=== PATIENT | female | born 1975 | race Caucasian/White ===

== ENCOUNTER 2019-12-29 08:58 | Inpatient (IN) | payer BC ==
[~2019-12-29] VITALS: Ht 162.6 cm; Wt 98.4 kg
[2019-12-29 09:49] LABS: BASO # 0.1 10^3/uL (0.0-0.2); BASO % 0.9 % (0.0-1.0); EOS # 0.2 10^3/uL (0.0-0.5); EOS % 2.9 % (0.0-3.0); HEMOGLOBIN 12.8 g/dl (12.0-15.5); LYMPH # 1.1 10^3/uL (1.5-5.0); LYMPH % 16.3 % (24.0-44.0); MEAN CORPUSCULAR HEMOGLOBIN 29.7 pg (27.0-33.0); MEAN CORPUSCULAR VOLUME 92.8 fl (80.0-96.0); MONO # 0.6 10^3/uL (0.0-0.8); MONO % 8.9 % (0.0-5.0); NEUTROPHILS # 4.6 10^3/uL (1.5-8.5); NEUTROPHILS % 70.4 % (36.0-66.0); PLATELET COUNT, AUTOMATED 280 10^3/uL (150-450); RED BLOOD COUNT 4.31 10^6/uL (4.00-5.40); WHITE BLOOD COUNT 6.5 10^3/uL (4.0-10.0)
[2019-12-29] MEDS ORDERED: ATOR80TA59 PO (09:52)
[2019-12-29] MEDS ORDERED: BASA100I SC (09:52)
[2019-12-29] MEDS ORDERED: HYDR-4517 PO (09:52)
[2019-12-29] MEDS ORDERED: SYNT88TA2 PO (09:52)
[2019-12-29] MEDS ORDERED: METO1TAB87 PO (09:52)
[2019-12-29] MEDS ORDERED: NITR0.4S14 SL (09:52)
[2019-12-29] MEDS ORDERED: ZETI10TA16 PO (09:52)
[2019-12-29] MEDS ORDERED: RANO500T7 PO (09:52)
[2019-12-29] MEDS ORDERED: GABA-843 PO (09:52)
[2019-12-29] MEDS ORDERED: PLAV1TAB2 PO (09:52)
[2019-12-29] MEDS ORDERED: CYMB1CAP5 PO (09:52)
[2019-12-29] MEDS ORDERED: PANT40TA3 PO (09:52)
[2019-12-29] MEDS ORDERED: NOVOINJ SC (09:52)
[2019-12-29] MEDS ORDERED: TIZA4CAP PO (09:52)
[2019-12-29] MEDS ORDERED: LISI10TA4 PO (09:52)
[2019-12-29] MEDS ORDERED: ASPI81TA85 PO (09:52)
[2019-12-29 10:01] LABS: PROTHROMBIN TIME 12.9 SECONDS (11.8-14.0)
[2019-12-29 10:02] LABS: PARTIAL THROMBOPLASTIN TIME 31.8 SECONDS (25.0-38.4)
[2019-12-29] MEDS ORDERED: NS 1,000 ML IV ONE (10:15)
[2019-12-29] MEDS ORDERED: ACETAMINOPHEN 500 MG TAB PO ONE (10:15)
[2019-12-29] MEDS ORDERED: ONDANSETRON 4MG/2ML VIAL IV ONE (10:15)
[2019-12-29 10:23] LABS: ALBUMIN 4.1 GM/DL (3.2-5.2); BILIRUBIN,DIRECT 0.2 MG/DL (0.0-0.2); BILIRUBIN,TOTAL 0.5 MG/DL (0.2-1.0); TOTAL PROTEIN 8.2 GM/DL (6.4-8.2)
--- NOTE | 2019-12-29 10:46 | REP ---
Clinical: Bilateral flank pain. Technique: Axial noncontrast images from the lung bases to the pubic symphysis with coronal and sagittal re-formations. Comparison: None. Findings: Lung bases demonstrate moderate streaky atelectasis and small early patchy alveolar infiltrates suggesting the possibility of early multifocal pneumonia. No effusion. Kidneys demonstrate bilateral hydronephrosis and proximal hydroureter along with perinephric and periureteral stranding. No evidence for nephroureterolithiasis is appreciated. The bladder is unremarkable. Liver, spleen, pancreas, and bilateral adrenal glands appear normal. Evidence of prior cholecystectomy. The enteric system suggests moderate fecal stasis without obstruction or acute inflammatory process. Pelvis demonstrates normal bladder and evidence for prior hysterectomy. No ascites. No free air. No adenopathy. Abdominal aorta without aneurysm. Musculoskeletal structures demonstrate degenerative and postsurgical changes. Impression: 1. Perinephric and periureteral stranding with hydronephrosis and no evidence for nephrolithiasis suggests pyelonephritis and correlation is recommended. 2. Bibasilar atelectasis and early patchy infiltrates raise the possibility of early pneumonia. Electronically Signed by Jaleel Leyva MD 12/29/2019 10:37 A
[2019-12-29] MEDS ORDERED: NORCO, ANEXSIA 5/325MG TABLET (HYDROcodone/ACETAMINOPHEN) PO ONE (11:15)
[2019-12-29] MEDS ORDERED: cefTRIAXone SOD 1 GM in D5W MINI-BAG PLUS 50 ML IV ONE (11:15)
[2019-12-29] MEDS ORDERED: GABA-845 PO (12:09)
[2019-12-29] MEDS ORDERED: ZOLP5TAB PO (12:09)
[2019-12-29] MEDS ORDERED: TRES1INJ2 SC (12:09)
[2019-12-29] MEDS ORDERED: LISI-538 PO (12:09)
[2019-12-29] MEDS ORDERED: GLUCAGON INJ 1MG VIAL SC PRN (12:45)
[2019-12-29] MEDS ORDERED: GLUCOSE 4GM CHEW TABLET PO PRN (12:45)
[2019-12-29] MEDS ORDERED: MORPHINE 2 MG/ML 1ML VIAL (J2270) IV PRN (12:45)
[2019-12-29] MEDS ORDERED: DEXTROSE 50% 50 ML SYRINGE IV PRN (12:45)
[2019-12-29] MEDS ORDERED: NITROGLYCERIN 0.4 MG SUBL TABLET SL PRN (12:45)
[2019-12-29] MEDS: NS 1,000 ML IV SCH (13:00)
[2019-12-29] MEDS ORDERED: NORCO, ANEXSIA 5/325MG TABLET (HYDROcodone/ACETAMINOPHEN) PO PRN ×2 (13:00)
[2019-12-29] MEDS: ASPIRIN 81 MG ENTERIC TAB PO SCH (13:12)
[2019-12-29] MEDS: CLOPIDOGREL 75 MG TAB PO SCH (13:12)
[2019-12-29] MEDS: DULoxetine 30 MG CAP (CYMBALTA) PO SCH (13:12)
[2019-12-29] MEDS: PANTOPRAZOLE 40MG TAB (PROTONIX) PO SCH (13:13)
--- NOTE | 2019-12-29 13:30 | HPEPDOC ---
General Date of Admission Dec 29, 2019 at 12:33 Date of Service: Dec 29, 2019 Chief Complaint The patient is a 44-year-old female Who presented to the emergency room with concerns of abdominal pain History of Present Illness Patient is a 44-year-old female form [place], PMHx of CAD s/p CABG (2015), HTN, DLP, IDDM2, Hypothyroidism, Neuropathy and Fibromyalgia, who presented to the ER with abdominal pain. Patient reports that her abdominal pain started on occurring at the lower portion of her abdomen.. She noted that it spread to her back toward her kidneys. Patient notes that the pain as a 10/10, continuous alleviated with hydrocodone that she takes at home; last dose was yesterday at 10 PM. Aggravated with movement. Patient reports discomfort with urination that started Monday night. Patient denies any fevers or chills. Does experiencing nausea without vomiting. Denies any chest pain, shortness of breath, cough or palpitations. Has not expense any constipation or diarrhea. Patient reports her appetite is poor and is unaware of any changes in her weig ht. Home Medications Scheduled Aspirin (Aspir 81) 81 Mg Tablet.dr, 81 MG PO DAILY, (Reported) Clopidogrel Bisulfate (Plavix) 75 Mg Tablet, 75 MG PO DAILY, (Reported) Duloxetine Hcl (Cymbalta) 30 Mg Capsule.dr, 30 MG PO DAILY, (Reported) Ezetimibe (Zetia) 10 Mg Tablet, 10 MG PO DAILY, (Reported) Gabapentin (Gabapentin) 400 Mg Capsule, 400 MG PO BID, (Reported) Insulin Aspart (Novolog) 100 Unit/1 Ml Cartridge, 1 DOSE SC ACHS, (Reported) PER SLIDING SCALE Insulin Degludec (Tresiba Flextouch U-100) 100 Unit/1 Ml Insuln.pen, 50 UNITS SC BID, (Reported) Levothyroxine Sodium (Synthroid) 88 Mcg Tablet, 88 MCG PO DAILY, (Reported) Lisinopril (Lisinopril) 20 Mg Tablet, 20 MG PO DAILY, (Reported) Metoprolol Tartrate (Metoprolol Tartrate) 25 Mg Tablet, 12.5 MG PO BID, (Reported) Pantoprazole Sodium (Pantoprazole Sodium) 40 Mg Tablet.dr, 40 MG PO DAILY, (Reported) Ranolazine (Ranexa) 500 Mg Tab.er.12h, 500 MG PO BID, (Reported) Tizanidine HCl (Tizanidine HCl) 4 Mg Capsule, 4 MG PO QHS, (Reported) Zolpidem Tartrate (Zolpidem Tartrate) 5 Mg Tablet, 5 MG PO QHS, (Reported) Scheduled PRN Nitroglycerin (Nitroglycerin) 0.4 Mg Tab.subl, 0.4 MG SL NITRO PRN for CHEST PAIN, (Reported) Allergies Coded Allergies: morphine (Verified Allergy, Severe, HAULLUCINATIONS, 12/29/19) Iodinated Contrast Media (Verified Allergy, Intermediate, RASH, 12/29/19) oxycodone (Verified Adverse Reaction, Intermediate, N/V, 12/29/19) Past Medical History Medical History CAD s/p CABG (2015), HTN, DLP, IDDM2, Hypothyroidism, Neuropathy, Arthritis, Headaches and Fibromyalgia Surgical History Back surgery 2009 Cholecystectomy Hysterectomy Sternum repair from complications of open heart surgery Family History - Reviewed and is noncontributory to this hospitalization Social History - Denies the use of alcohol or illicit drugs; patient reports that she quit smoking in 2015 - Denies any sick contacts; patient is from [place] - Lives with Review of Systems Other systems 10 point review of systems complete, all negative otherwise stated in HPI Vital Signs - Vitals: BP 134/80, HR 85, RR 20, Sat 96%RA, Temp 97.8F - General: Lying in bed, Speaking in full sentences, AAOx3 - HEENT: NC, AT, PERRLA - CVS: RRR, +S1S2 - Lungs: Fair air entry bilaterally, No appreciable wheezing / rales / rhonchi - Abdomen: Soft, Non-distended, + Suprapubic tenderness, + CVA tenderness - Extremities: No lower extremity edema, No calf tenderness - Neuro: No focal motor or sensory deficit - Skin: No visible rashes Laboratory Data Labs 24H Laboratory Tests 2 12/29/19 09:34: POC Glucose (Misc Panel) 94, POC Sodium (Misc Panel) 136, POC Potassium (Misc Panel) 5.0, POC Chloride (Misc Panel) 102, POC Total CO2 (Misc Panel) 26.0, POC Blood Urea Nitrogen (Misc Panel 24, POC Ionized Calcium (Misc Panel) 4.4L, POC Creatinine (Misc Panel) 2.0H, POC Hematocrit (Misc Panel) 40.0 12/29/19 09:35: Immature Granulocyte % (Auto) 0.6, Neutrophils (%) (Auto) 70.4H, Lymphocytes (%) (Auto) 16.3L, Monocytes (%) (Auto) 8.9H, Eosinophils (%) (Auto) 2.9, Basophils (%) (Auto) 0.9, Neutrophils # (Auto) 4.6, Lymphocytes # (Auto) 1.1L, Monocytes # (Auto) 0.6, Eosinophils # (Auto) 0.2, Basophils # (Auto) 0.1, Nucleated Red Blood Cells % (auto) 0.0, Prothrombin Time 12.9, Prothromb Time International Ratio 1.00, Activated Partial Thromboplast Time 31.8, Lactic Acid Level 0.8, Total Bilirubin 0.5, Direct Bilirubin 0.2, Aspartate Amino Transf (AST/SGOT) 86H, Alanine Aminotransferase (ALT/SGPT) 44, Alkaline Phosphatase 92, Total Pr otein 8.2, Albumin 4.1, Albumin/Globulin Ratio 1.0L, Amylase Level 25, Lipase 101 12/29/19 10:44: Urine Color YELLOW, Urine Appearance CLOUDYH, Urine pH 5.0, Urine Specific [place] 1.013, Urine Protein 2+H, Urine Glucose (UA) NEGATIVE, Urine Ketones NEGATIVE, Urine Blood 1+H, Urine Nitrite NEGATIVE, Urine Bilirubin NEGATIVE, Urine Urobilinogen 0.2, Urine Leukocyte Esterase 2+H, Urine WBC (Auto) TNTCH, Urine RBC (Auto) 124H, Urine Hyaline Casts (Auto) 0, Urine Bacteria (Auto) 1+H, Urine Squamous Epithelial Cells 1, Urine Sperm (Auto) CBC/BMP Laboratory Tests 12/29/19 09:35 Microbiology Microbiology 12/29/19 Urine Culture, Received Pending Plan / VTE VTE Prophylaxis Ordered?: Yes Plan Plan Bilateral pyelonephritis - Presented to the emergency room with complains of abdominal pain associated with nausea and dysuria - Physical with abdominal tenderness at suprapubic region and CVA tenderness - Hemodynamically stable and afebrile - No significant leukocytosis or lactic acidosis - UA with consistency with infection; urine culture pending, but culture pending - Will start ceftriaxone IV fluid hydration Elevated Cr - Suspect CKD; no baseline to compare against - Will hold nephrotoxic medications - Will c/w IV fluid hydration for above CAD s/p CABG (2015) - c/w ASA, Plavix, Metoprolol Ranolazine - c/w Nitroglycerin PRN HTN - BP well controlled - Will hold Lisinopril - c/w Metoprolol with holding parameters DLP - c/w Ezetimibe IDDM2 - Will start ISS - Will c/w long acting insulin at adjusted dose Hypothyroidism - c/w Levothyroxine Neuropathy / Arthritis / Headaches and Fibromyalgia - c/w Tizanidine, Duloxetine - c/w [place] based on outpatient regimen Insomnia - c/w Zolpidem GERD - c/w Protonix DVT prophylaxis - Will start Heparin ALLEY BENAVIDEZ MD Dec 29, 2019 13:30
[2019-12-29 15:22] VITALS: BP 148/85
[2019-12-29] MEDS: HumaLOG INSULIN (NovoLOG) PER UNIT SC SCH ×2 (16:38→21:00)
[2019-12-29] MEDS: HEPARIN SOD (PORCINE) 5000UNITS/ML VIAL (J1644 PER 1000UNITS) SC SCH ×2 (16:46→21:37)
[2019-12-29] MEDS: EZETIMIBE 10 MG TAB (ZETIA) PO SCH (16:46)
[2019-12-29] MEDS: GABAPENTIN 400 MG CAP PO SCH (21:36)
[2019-12-29] MEDS: zolPIDEM TARTRATE 5 MG TAB PO SCH (21:36)
[2019-12-29] MEDS: METOPROLOL TART 12.5 MG PER 1/2 TAB PO SCH (21:36)
[2019-12-29] MEDS: RANOLAZINE 500 MG ER TAB PO SCH (21:36)
[2019-12-29] MEDS: tiZANidine 4 MG TAB PO SCH (21:37)
[2019-12-29] MEDS: LEVEMIR (INSULIN DETEMIR) 1 UNITS/0.01ML SC SCH (21:37)
[2019-12-29 22:00] VITALS: BP 144/85
[2019-12-30] MEDS: NS 1,000 ML IV SCH (01:38)
[2019-12-30] MEDS: HEPARIN SOD (PORCINE) 5000UNITS/ML VIAL (J1644 PER 1000UNITS) SC SCH ×3 (05:44→21:25)
[2019-12-30] MEDS: LEVOTHYROXINE 88MCG TABLET (0.088 MG) PO SCH (05:44)
[2019-12-30 06:00] VITALS: BP 104/64
[2019-12-30 06:39] LABS: BASO # 0.1 10^3/uL (0.0-0.2); BASO % 1.9 % (0.0-1.0); EOS # 0.2 10^3/uL (0.0-0.5); EOS % 4.6 % (0.0-3.0); HEMATOCRIT 33.5 % (36.0-47.0); LYMPH # 1.5 10^3/uL (1.5-5.0); LYMPH % 35.7 % (24.0-44.0); MEAN CORPUSCULAR HEMOGLOBIN 29.9 pg (27.0-33.0); MEAN CORPUSCULAR HGB CONC 31.6 g/dl (32.0-36.5); MEAN CORPUSCULAR VOLUME 94.4 fl (80.0-96.0); MONO # 0.3 10^3/uL (0.0-0.8); NEUTROPHILS # 2.1 10^3/uL (1.5-8.5); NEUTROPHILS % 49.4 % (36.0-66.0); PLATELET COUNT, AUTOMATED 261 10^3/uL (150-450); RED BLOOD COUNT 3.55 10^6/uL (4.00-5.40); WHITE BLOOD COUNT 4.3 10^3/uL (4.0-10.0)
[2019-12-30 06:40] LABS: HEMOGLOBIN 10.6 g/dl (12.0-15.5)
[2019-12-30 06:58] LABS: CALCIUM LEVEL 8.1 MG/DL (8.5-10.1); CREATININE FOR GFR 1.58 MG/DL (0.55-1.30); GLOMERULAR FILTRATION RATE 37.6 (>58); MAGNESIUM LEVEL 2.3 MG/DL (1.8-2.4)
[2019-12-30] MEDS: HumaLOG INSULIN (NovoLOG) PER UNIT SC SCH ×4 (07:30→20:03)
[2019-12-30] MEDS: GABAPENTIN 400 MG CAP PO SCH ×2 (08:27→21:23)
[2019-12-30] MEDS: RANOLAZINE 500 MG ER TAB PO SCH ×2 (08:28→21:23)
[2019-12-30] MEDS: ASPIRIN 81 MG ENTERIC TAB PO SCH (08:28)
[2019-12-30] MEDS: EZETIMIBE 10 MG TAB (ZETIA) PO SCH (08:28)
[2019-12-30] MEDS: DULoxetine 30 MG CAP (CYMBALTA) PO SCH (08:28)
[2019-12-30] MEDS: PANTOPRAZOLE 40MG TAB (PROTONIX) PO SCH (08:28)
[2019-12-30] MEDS: METOPROLOL TART 12.5 MG PER 1/2 TAB PO SCH ×2 (08:28→21:24)
[2019-12-30] MEDS: CLOPIDOGREL 75 MG TAB PO SCH (08:28)
[2019-12-30] MEDS ORDERED: LEVEMIR (INSULIN DETEMIR) 1 UNITS/0.01ML SC ONE (10:00)
[2019-12-30] MEDS: LEVEMIR (INSULIN DETEMIR) 1 UNITS/0.01ML SC SCH ×2 (10:04→21:00)
[2019-12-30] MEDS: cefTRIAXone SOD 1 GM in D5W MINI-BAG PLUS 50 ML IV SCH (11:22)
--- NOTE | 2019-12-30 12:02 | IPNPDOC ---
Text Note Date of Service The patient was seen on 12/30/19. NOTE Subjective: Patient is a 44-year-old female form [place], PMHx of CAD s/p CABG (2015), HTN, DLP, IDDM2, Hypothyroidism, Neuropathy and Fibromyalgia, who presented to the ER with abdominal pain. Patient reports that her abdominal pain started on occurring at the lower portion of her abdomen.. She noted that it spread to her back toward her kidneys. Patient notes that the pain as a 10/10, continuous alleviated with hydrocodone that she takes at home; last dose was yesterday at 10 PM. Patient. Imaging completed in emergency room that was consistent with bilateral pyelonephritis and was admitted to hospitalist service for further evaluation, treatment. Patient was seen and examined at the bedside. Patient denies any nausea, vomiting, diarrhea or constipation. Patient reports her urinary discomfort has been improving and her abdominal pain has resolved. She denies any chest pain, shortness of breath, palpitations. Objective: Vitals (See below) General: Lying in bed, comfortable, AAOx3 HEENT: NC, AT CVS: +S1S2 Lungs: Fair air entry b/l, -w/r/r Abdomen: Soft, ND, NT Extremities: - Edema, - Calf tenderness Assessment and plan: Bilateral pyelonephritis - Presented to ER with complains of abdominal pain associated with nausea and dysuria - Physical with abdominal tenderness at suprapubic region and CVA tenderness - Hemodynamically stable and afebrile - No leukocytosis / Lactic acidosis - UA with consistency with infection; urine culture remain pending - c/w ceftriaxone IV (Day#2) Elevated Cr - Suspect CKD; no baseline to compare against - Will hold nephrotoxic medications - Will stop IV fluid hydration - Encourage oral fluid intake CAD s/p CABG (2016) - c/w ASA, Plavix, Metoprolol Ranolazine - c/w Nitroglycerin PRN HTN - BP well controlled currently - Will hold Lisinopril (re: elevated Cr) - c/w Metoprolol with holding parameters DLP - c/w Ezetimibe IDDM2 - c/w ISS - c/w long acting insulin at adjusted dose Hypothyroidism - c/w Levothyroxine Neuropathy / Arthritis / Headaches and Fibromyalgia - c/w Tizanidine, Duloxetine - c/w [place] based on outpatient regimen Insomnia - c/w Zolpidem GERD - c/w Protonix DVT prophylaxis - c/w Heparin VS,Fishbone, I+O VS, Fishbone, I+O Laboratory Tests 12/30/19 05:38 Vital Signs Date Time Temp Pulse Resp B/P (MAP) Pulse Ox O2 Delivery O2 Flow Rate FiO2 12/30/19 08:28 74 119/61 12/30/19 06:00 97.8 16 97 Room Air I&O- Last 24 Hours up to 6 AM 12/30/19 06:00 Intake Total 1830 ml Output Total 450 ml Balance 1380 ml ALLEY BENAVIDEZ MD Dec 30, 2019 12:02
[2019-12-30 14:00] VITALS: BP 118/62
[2019-12-30] MEDS ORDERED: ONDANSETRON 4MG/2ML VIAL IV PRN (20:15)
[2019-12-30] MEDS: tiZANidine 4 MG TAB PO SCH (21:23)
[2019-12-30] MEDS: zolPIDEM TARTRATE 5 MG TAB PO SCH (21:23)
[2019-12-30 22:00] VITALS: BP 139/91
[2019-12-31] MEDS: LEVOTHYROXINE 88MCG TABLET (0.088 MG) PO SCH (05:45)
[2019-12-31] MEDS: HEPARIN SOD (PORCINE) 5000UNITS/ML VIAL (J1644 PER 1000UNITS) SC SCH (05:46)
[2019-12-31 06:00] VITALS: BP 124/77
[2019-12-31 06:31] LABS: BASO # 0.1 10^3/uL (0.0-0.2); BASO % 1.9 % (0.0-1.0); EOS # 0.2 10^3/uL (0.0-0.5); HEMATOCRIT 32.9 % (36.0-47.0); HEMOGLOBIN 10.7 g/dl (12.0-15.5); LYMPH # 1.6 10^3/uL (1.5-5.0); LYMPH % 32.8 % (24.0-44.0); MEAN CORPUSCULAR HEMOGLOBIN 30.3 pg (27.0-33.0); MEAN CORPUSCULAR HGB CONC 32.5 g/dl (32.0-36.5); MEAN CORPUSCULAR VOLUME 93.2 fl (80.0-96.0); MONO # 0.3 10^3/uL (0.0-0.8); NEUTROPHILS # 2.6 10^3/uL (1.5-8.5); NEUTROPHILS % 53.1 % (36.0-66.0); PLATELET COUNT, AUTOMATED 278 10^3/uL (150-450); RED BLOOD COUNT 3.53 10^6/uL (4.00-5.40); WHITE BLOOD COUNT 4.8 10^3/uL (4.0-10.0)
[2019-12-31 06:58] LABS: CREATININE FOR GFR 1.76 MG/DL (0.55-1.30); GLOMERULAR FILTRATION RATE 33.2 (>58); MAGNESIUM LEVEL 2.2 MG/DL (1.8-2.4); POTASSIUM SERUM 4.1 MEQ/L (3.5-5.1)
[2019-12-31] MEDS: HumaLOG INSULIN (NovoLOG) PER UNIT SC SCH (07:30)
[2019-12-31] MEDS: CLOPIDOGREL 75 MG TAB PO SCH (07:49)
[2019-12-31] MEDS: RANOLAZINE 500 MG ER TAB PO SCH (07:49)
[2019-12-31] MEDS: ASPIRIN 81 MG ENTERIC TAB PO SCH (07:49)
[2019-12-31] MEDS: PANTOPRAZOLE 40MG TAB (PROTONIX) PO SCH (07:49)
[2019-12-31] MEDS: DULoxetine 30 MG CAP (CYMBALTA) PO SCH (07:49)
[2019-12-31] MEDS: GABAPENTIN 400 MG CAP PO SCH (07:49)
[2019-12-31 07:50] VITALS: BP 131/87
[2019-12-31] MEDS: METOPROLOL TART 12.5 MG PER 1/2 TAB PO SCH (07:50)
[2019-12-31] MEDS: EZETIMIBE 10 MG TAB (ZETIA) PO SCH (07:50)
[2019-12-31] MEDS: LEVEMIR (INSULIN DETEMIR) 1 UNITS/0.01ML SC SCH (07:52)
[2019-12-31] MEDS: cefTRIAXone SOD 1 GM in D5W MINI-BAG PLUS 50 ML IV SCH (08:42)
[2019-12-31] MEDS ORDERED: CEFD300CAP PO (10:02)
--- NOTE | 2019-12-31 13:10 | DS.PDOC ---
Discharge Summary General Date of Admission Dec 29, 2019 at 12:33 Date of Discharge 12/31/2019 Discharge Summary PROCEDURES PERFORMED DURING STAY: [None]. ADMITTING DIAGNOSES / DISCHARGE DIAGNOSES: Bilateral pyelonephritis Elevated Cr - likely 2/2 CKD3 CAD s/p CABG (2015) HTN DLP IDDM2 Hypothyroidism Neuropathy / Arthritis / Headaches and Fibromyalgia Insomnia GERD DVT prophylaxis COMPLICATIONS/CHIEF COMPLAINT: Weakness / Abdominal pain / Dysuria HISTORY OF PRESENT ILLNESS: Patient is a 44-year-old female form [place], PMHx of CAD s/p CABG (2015), HTN, DLP, IDDM2, Hypothyroidism, Neuropathy and Fibromyalgia, who presented to the ER with abdominal pain. Patient reports that her abdominal pain started on occurring at the lower portion of her abdomen.. She noted that it spread to her back toward her kidneys. Patient notes that the pain as a 10/10, continuous alleviated with hydrocodone that she takes at home; last dose was yesterday at 10 PM. Patient. Imaging completed in emergency room that was consistent with bilateral pyelonephritis and was admitted to hospitalist service for further evaluation, treatment. HOSPITAL COURSE: Bilateral pyelonephritis - Presented to ER with complains of abdominal pain associated with nausea and dysuria; currenltly reports resolution of abdominal pain and dysuria - Physical without tenderness at abdomen / CVA - Hemodynamically stable and afebrile - No leukocytosis / Lactic acidosis - UA with consistency with infection; urine culture remain pending - c/w ceftriaxone IV (Day#3); will continue with Cefdinir on discharge for completion of antibiotic course Elevated Cr - likely 2/2 CKD3 - Suspect CKD; no baseline to compare against - Patient reports that she has had a history of poor renal function and was advised of her kidneys shutting down the past - Will hold nephrotoxic medications - s/p IV fluid hydration - Patient again has been encouraged to increase oral fluid intake CAD s/p CABG (2015) - c/w ASA, Plavix, Metoprolol Ranolazine - c/w Nitroglycerin PRN HTN - BP well controlled currently - Will resume Lisinopril on discharge - c/w Metoprolol with holding parameters DLP - c/w Ezetimibe IDDM2 - c/w ISS - c/w long acting insulin at adjusted dose Hypothyroidism - c/w Levothyroxine Neuropathy / Arthritis / Headaches and Fibromyalgia - c/w Tizanidine, Duloxetine - c/w [place] based on outpatient regimen Insomnia - c/w Zolpidem GERD - c/w Protonix DVT prophylaxis - c/w Heparin DISCHARGE MEDICATIONS: Please see below. ALLERGIES: Please see below. PHYSICAL EXAMINATION ON DISCHARGE: Vitals (See below) General: Lying in bed, appears comfortable, AAOx3 HEENT: NC, AT CVS: +S1S2 Lungs: Fair air entry b/l, no appreciable wheezing, rhonchi or rales Abdomen: Soft, ND, NT Extremities: No evidence of edema, - Calf tenderness LABORATORY DATA: Please see below. ACTIVITY: [As tolerated]. DISCHARGE PLAN: Follow up with PCP within 7 days Remain compliant with treatment plan and medications Return to the ER if you experience any problems DISPOSITION: Home, Self-Care. DISCHARGE CONDITION: [Stable]. TIME SPENT ON DISCHARGE: 35 minutes. Vital Signs/I&Os Vital Signs Date Time Temp Pulse Resp B/P (MAP) Pulse Ox O2 Delivery O2 Flow Rate FiO2 12/31/19 07:50 78 131/87 12/31/19 06:00 97.3 18 96 Room Air I&O- Last 24 Hours up to 6 AM 12/31/19 06:00 Intake Total 2700 ml Output Total 1200 ml Balance 1500 ml Laboratory Data Labs 24H Laboratory Tests 2 12/30/19 16:22: Bedside Glucose (Misc Panel) 128H 12/30/19 19:41: Bedside Glucose (Misc Panel) 75 12/30/19 21:22: Bedside Glucose (Misc Panel) 63L 12/31/19 00:10: Bedside Glucose (Misc Panel) 131H 12/31/19 05:48: Bedside Glucose (Misc Panel) 102 12/31/19 06:18: Immature Granulocyte % (Auto) 1.2, Neutrophils (%) (Auto) 53.1, Lymphocytes (%) (Auto) 32.8, Monocytes (%) (Auto) 6.0H, Eosinophils (%) (Auto) 5.0H, Basophils (%) (Auto) 1.9H, Neutrophils # (Auto) 2.6, Lymphocytes # (Auto) 1.6, Monocytes # (Auto) 0.3, Eosinophils # (Auto) 0.2, Basophils # (Auto) 0.1, Nucleated Red Blood Cells % (auto) 0.0, Anion Gap 5L, Glomerular Filtration Rate 33.2L, Calcium Level 9.0, Magnesium Level 2.2 12/31/19 06:21: Bedside Glucose (Misc Panel) 89 CBC/BMP Laboratory Tests 12/31/19 06:18 FSBS Laboratory Tests Test 12/30/19 16:22 12/30/19 19:41 12/30/19 21:22 12/31/19 00:10 Range/Units Bedside Glucose (Misc Panel) 128 75 63 131 70-105 MG/DL Test 12/31/19 05:48 12/31/19 06:21 Range/Units Bedside Glucose (Misc Panel) 102 89 70-105 MG/DL Microbiology Microbiology 12/29/19 Urine Culture - Final, Complete Escherichia Coli Discharge Medications Scheduled Aspirin (Aspir 81) 81 Mg Tablet.dr, 81 MG PO DAILY, (Reported) Cefdinir (Cefdinir) 300 Mg Capsule, 1 CAP PO BID Clopidogrel Bisulfate (Plavix) 75 Mg Tablet, 75 MG PO DAILY, (Reported) Duloxetine Hcl (Cymbalta) 30 Mg Capsule.dr, 30 MG PO DAILY, (Reported) Ezetimibe (Zetia) 10 Mg Tablet, 10 MG PO DAILY, (Reported) Gabapentin (Gabapentin) 400 Mg Capsule, 400 MG PO BID, (Reported) Insulin Aspart (Novolog) 100 Unit/1 Ml Cartridge, 1 DOSE SC ACHS, (Reported) PER SLIDING SCALE Insulin Degludec (Tresiba Flextouch U-100) 100 Unit/1 Ml Insuln.pen, 50 UNITS SC BID, (Reported) Levothyroxine Sodium (Synthroid) 88 Mcg Tablet, 88 MCG PO DAILY, (Reported) Lisinopril (Lisinopril) 20 Mg Tablet, 20 MG PO DAILY, (Reported) Metoprolol Tartrate (Metoprolol Tartrate) 25 Mg Tablet, 12.5 MG PO BID, (Reported) Pantoprazole Sodium (Pantoprazole Sodium) 40 Mg Tablet.dr, 40 MG PO DAILY, (Reported) Ranolazine (Ranexa) 500 Mg Tab.er.12h, 500 MG PO BID, (Reported) Tizanidine HCl (Tizanidine HCl) 4 Mg Capsule, 4 MG PO QHS, (Reported) Zolpidem Tartrate (Zolpidem Tartrate) 5 Mg Tablet, 5 MG PO QHS, (Reported) Scheduled PRN Nitroglycerin (Nitroglycerin) 0.4 Mg Tab.subl, 0.4 MG SL NITRO PRN for CHEST PAIN, (Reported) Allergies Coded Allergies: morphine (Verified Allergy, Severe, HAULLUCINATIONS, 12/29/19) Iodinated Contrast Media (Verified Allergy, Intermediate, RASH, 12/29/19) oxycodone (Verified Adverse Reaction, Intermediate, N/V, 12/29/19) ALLEY BENAVIDEZ MD Dec 31, 2019 13:10
== END 2019-12-31 10:27 | disposition home or self-care (01) | DRG 463 ==
LOC: M ED 08:58 → M ED INP 12:33 → ENRESERV 13:03 → M MSPAV 15:22
PROVIDERS: ADMIT Internal Medicine; ATTEND Internal Medicine
DX: N12 Tubulo-interstitial nephritis, not specified as acute or chronic (principal); I25.10 Atherosclerotic heart disease of native coronary artery without angina pectoris; I12.9 Hypertensive chronic kidney disease with stage 1 through stage 4 chronic kidney disease, or unspecified chronic kidney disease; E78.5 Hyperlipidemia, unspecified; E11.40 Type 2 diabetes mellitus with diabetic neuropathy, unspecified; E03.9 Hypothyroidism, unspecified; G47.00 Insomnia, unspecified; N18.3 Chronic kidney disease, stage 3 (moderate); K21.9 Gastro-esophageal reflux disease without esophagitis; B96.20 Unspecified Escherichia coli [E. coli] as the cause of diseases classified elsewhere; E11.22 Type 2 diabetes mellitus with diabetic chronic kidney disease; M79.7 Fibromyalgia; Z79.82 Long term (current) use of aspirin; Z79.02 Long term (current) use of antithrombotics/antiplatelets; Z79.4 Long term (current) use of insulin; Z79.899 Other long term (current) drug therapy; Z88.5 Allergy status to narcotic agent; Z91.041 Radiographic dye allergy status; Z87.891 Personal history of nicotine dependence; Z95.1 Presence of aortocoronary bypass graft